=== PATIENT | male | born 1940 | race Caucasian/White ===

== ENCOUNTER 2016-10-27 17:16 | Emergency (ER) | payer MEDICARE, MEDICAID ==
[2016-10-27 17:18] VITALS: BMI 20.3
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
[2016-10-27 22:39] VITALS: BP 142/76; PULSE 70; RESP 16; TEMP 98; O2SAT 99
== END 2016-10-27 22:38 | disposition home or self-care (01) ==
LOC: C.ER 17:16
DX: F91.9 Conduct disorder, unspecified (principal)

== ENCOUNTER 2017-01-30 01:40 | Inpatient (IN) | payer MEDICARE, MEDICAID ==
[2017-01-30 01:41] VITALS: BMI 20.3
--- NOTE | 2017-01-30 01:44 | C.PDOC ---
History Of Present Illness Patient presents to ED sent from [facility] with complaints of fever, congestion and white/yellowish productive cough. Patient denies n/v/d, chest pain, or any other complaints at this time. Time Seen by Provider: 01/30/17 01:43 History Per: Patient History/Exam Limitations: no limitations Onset/Duration Of Symptoms: Hrs Current Symptoms Are (Timing): Still Present Severity: Moderate Pain Scale Rating Of: 4 Reports Recently: Seen In ED, Treated By A Physician, Hospitalized Recent travel outside of the [place]: No Additional History Per: EMS Past Medical History Reviewed: Historical Data, Nursing Documentation, Vital Signs Vital Signs: Last Vital Signs Temp 100.6 F H 01/30/17 01:46 Pulse 87 01/30/17 01:46 Resp 24 01/30/17 01:46 BP 150/71 01/30/17 01:46 Pulse Ox 100 01/30/17 04:08 - Medical History PMH: Benign Prostatic Hyperplasia, Dementia (W BEHAVIOR D/O), Depression, HTN, Hyperlipidemia, Pancreatitis, Seizures - [facility] Procedures CONTRAST ARTERIOGRAM-LEG (12/08/12) Family History: States: No Known Family Hx - Social History Hx Alcohol Use: No Hx Substance Use: No - Immunization History Hx Tetanus Toxoid Vaccination: No Hx Influenza Vaccination: No Hx Pneumococcal Vaccination: No Review Of Systems Constitutional: Positive for: Fever. Negative for: Chills Eyes: Negative for: Redness ENT: Positive for: Nose Congestion Cardiovascular: Negative for: Chest Pain Respiratory: Positive for: Cough, Shortness of Breath Gastrointestinal: Negative for: Nausea, Vomiting, Diarrhea Genitourinary: Negative for: Dysuria Musculoskeletal: Negative for: Back Pain Skin: Negative for: Rash, Lesions Neurological: Negative for: Weakness Psych: Positive for: Anxiety Physical Exam - Physical Exam Appears: Non-toxic, Other (moderate distress) Skin: Warm, Dry Head: Normacephalic Eye(s): bilateral: Normal Inspection Nose: No Flaring Oral Mucosa: Dry Throat: No Erythema Neck: Supple Chest: Symmetrical Cardiovascular: Rhythm Regular Respiratory: No Rales, Rhonchi (Scattered), No Wheezing Gastrointestinal/Abdominal: Soft, No Tenderness, No Distention, No Guarding, No Rebound Back: No CVA Tenderness Extremity: No Tenderness, Other (r bka) Extremity: Right: Other (bka) Neurological/Psych: Oriented x3, Normal Speech, Normal Cognition Gait: Unable To Assess ED Course And Treatment - Laboratory Results Result Diagrams: 01/30/17 02:06 01/30/17 02:06 ECG: Interpreted By Me, Viewed By Me ECG Rhythm: Sinus Rhythm (82), R BBB, ST/T Changes (lat ischemic chenges), Nonspecific Changes (lahb) O2 Sat by Pulse Oximetry: 100 (RA) Pulse Ox Interpretation: Normal Disposition Discussed With Dr.: Gabi Huddleston Comment: accepted the pt on his service and took over the care at 4AM Doctor Will See Patient In The: Hospital Counseled Patient/Family Regarding: Studies Performed, Diagnosis - Disposition Referrals: Gabi Huddleston MD [Primary Care Provider] - Disposition: HOSPITALIZED Disposition Time: 01:43 Condition: FAIR - Clinical Impression Clinical Impression: Upper respiratory infection, Pneumonia, UTI (urinary tract infection) - Scribe Statement The provider has reviewed the documentation as recorded by the Scribe Jennie Beauchamp All medical record entries made by the Scribe were at my direction and personally dictated by me. I have reviewed the chart and agree that the record accurately reflects my personal performance of the history, physical exam, medical decision making, and the department course for this patient. I have also personally directed, reviewed, and agree with the discharge instructions and disposition. Decision To Admit - Pt Status Changed To: Hospital Disposition Of: Inpatient - Admit Certification Admit to Inpatient:: After my assessment, the patient will require hospitalization for at least two midnights. This is because of the severity of symptoms shown, intensity of services needed, and/or the medical risk in this patient being treated as an outpatient. - InPatient: Physician Admission Certification: I certify that this patient requires 2 or more midnights of care for the following reason:: After my assessment, the patient will require hospitalization for at least two midnights. This is because of the severity of symptoms shown, intensity of services needed, and/or the medical risk in this patient being treated as an outpatient. - . Bed Request Type: Regular Admitting Physician: Gabi Huddleston Patient Diagnosis: Upper respiratory infection, Pneumonia
[2017-01-30] MEDS ORDERED: Sodium Chloride 0.9% 1,000 ML IV ONE (01:46)
[2017-01-30] MEDS ORDERED: Sodium Chloride 0.9% 1,000 ML ONE (02:01)
[2017-01-30] MEDS: Albuterol-Ipratrop 3 mg / 0.5 (3 ml) UD IH SCH ×3 (02:02→02:33)
[2017-01-30] MEDS ORDERED: Albuterol-Ipratrop 3 mg / 0.5 (3 ml) UD ONE (02:06)
[2017-01-30 02:09] LABS: BASO % 0.3 % (0.0-2.0); HEMATOCRIT 38.9 % (35.0-51.0); LYMPH # 2.2 K/uL (1.0-4.3); LYMPH % 15.9 % (20.0-40.0); MEAN CELL VOLUME 80.5 fL (80.0-94.0); MEAN CORPUSCULAR HEMOGLOBIN 25.8 pg (27.0-31.0); MEAN PLATELET VOLUME 8.9 fL (7.2-11.7); MONO # 2.3 K/uL (0.0-0.8); MONO % 16.4 % (0.0-10.0); RED CELL DISTRIBUTION WIDTH 14.6 % (11.5-14.5); WHITE BLOOD COUNT 13.7 K/uL (4.8-10.8)
[2017-01-30 02:20] LABS: CHLORIDE 101 mmol/L (98-107)
[2017-01-30 02:21] LABS: POTASSIUM 4.4 mmol/L (3.6-5.2); SODIUM 146 mmol/L (132-148)
[2017-01-30 02:22] LABS: INR 1.4
[2017-01-30 02:23] LABS: GFR AFRICAN-AMERICAN > 60
[2017-01-30 02:24] LABS: ALKALINE PHOSPHATASE 451 U/L (38-126); ALT/SGPT 13 U/L (21-72); AST/SGOT 38 U/L (17-59); BILIRUBIN,TOTAL 0.9 mg/dL (0.2-1.3); BLOOD UREA NITROGEN 23 mg/dL (9-20); CALCIUM 9.6 mg/dl (8.6-10.4); CARBON DIOXIDE 27 mmol/L (22-30); GLUCOSE,RANDOM 122 mg/dL (75-110)
[2017-01-30 02:28] LABS: ABG ALLEN TEST POS; DRAW SITE L RAD
[2017-01-30 02:47] LABS: ALB/GLOB RATIO 0.8 (1.0-2.1)
[2017-01-30 04:01] LABS: RBC URINE 174 /hpf (0-3); URINE BILIRUBIN NEGATIVE (NEGATIVE); URINE BLOOD 2+ (NEGATIVE); URINE COLOR Yellow (YELLOW); URINE GLUCOSE (UA) NORMAL (Normal); URINE KETONE 1+ mg/dL (NEGATIVE); URINE LEUKOCYTE ESTERASE 1+ Leu/uL (Negative); URINE PROTEIN 2+ mg/dL (NEGATIVE); WBC URINE 13 /hpf (0-5)
[2017-01-30] MEDS ORDERED: Piperacillin/Tazobact 3.375 gm 100 ML IVPB STA (04:54)
[2017-01-30] MEDS ORDERED: Piperacillin/Tazobact 3.375 gm 100 ML IVPB ONE (05:05)
--- NOTE | 2017-01-30 08:50 | RAD ---
PROCEDURE: CHEST RADIOGRAPH, 1 VIEW HISTORY: SOB COMPARISON: None available. FINDINGS: LUNGS: No acute infiltrate identified. PLEURA: No pneumothorax or pleural fluid seen. CARDIOVASCULAR: Normal. OSSEOUS STRUCTURES: No significant abnormalities. VISUALIZED UPPER ABDOMEN: Normal. OTHER FINDINGS: None. IMPRESSION: No acute cardiopulmonary disease appreciated.
[2017-01-30] MEDS ORDERED: Azithromycin 500mg/250ML NS 500 MG/250 ML BAG IVPB SCH (09:00)
[2017-01-30] MEDS ORDERED: Home Med 1 UNIT (Brimonidine 0.15% [Alphagan P 0.15% Opht] 1 DROP) OP SCH (10:00)
[2017-01-30] MEDS: Metoprolol Succinate 25 mg XL Tab PO SCH (10:50)
[2017-01-30] MEDS: Azithromycin 500 MG in Sodium Chloride 0.9% 250 ML IVPB SCH (10:50)
[2017-01-30] MEDS: Enoxaparin 40 mg Syringe SC SCH (10:50)
[2017-01-30] MEDS: cefTRIAXone IV 1 gm in Dextros 50 ML IVPB SCH (13:02)
[2017-01-30] MEDS: Albuterol-Ipratrop 3 mg / 0.5 (3 ml) UD INH SCH ×2 (13:05→20:12)
--- NOTE | 2017-01-30 16:37 | CP.PCM.HP ---
Past Patient History - Infectious Disease Hx of Infectious Diseases: None - Past Medical History & Family History Past Medical History?: Yes - Past Social History Smoking Status: Former Smoker - CARDIAC Hx Hypertension: Yes - PULMONARY Hx Asthma: No Hx Bronchitis: No - NEUROLOGICAL Hx Dementia: Yes (W BEHAVIOR D/O) Hx Seizures: Yes - HEENT Hx HEENT Problems: No - RENAL Hx Chronic Kidney Disease: No Hx Kidney Stones: No - ENDOCRINE/METABOLIC Hx Endocrine Disorders: No - HEMATOLOGICAL/ONCOLOGICAL Hx Human Immunodeficiency Virus (HIV): No - INTEGUMENTARY Hx Dermatological Problems: Yes Hx Cellulitis: Yes - MUSCULOSKELETAL/RHEUMATOLOGICAL Hx Musculoskeletal Disorders: Yes Hx Falls: Yes - GASTROINTESTINAL Hx Pancreatitis: Yes - GENITOURINARY/GYNECOLOGICAL Hx Prostate Problems: Yes (BPH) Hx Sexually Transmitted Disorders: No - PSYCHIATRIC Hx Depression: Yes Hx Substance Use: No - SURGICAL HISTORY Hx Surgeries: Yes Hx Amputation: Yes (R BKA) - ANESTHESIA Hx Anesthesia: Yes Hx Anesthesia Reactions: No Hx Malignant Hyperthermia: No Meds Allergies/Adverse Reactions: Allergies Allergy/AdvReac Type Severity Reaction Status Date / Time No Known Allergies Allergy Verified 01/30/17 01:43 Physical Exam - Constitutional Appears: Well - Head Exam Head Exam: ATRAUMATIC, NORMAL INSPECTION, NORMOCEPHALIC - Eye Exam Eye Exam: EOMI, Normal appearance, PERRL Pupil Exam: NORMAL ACCOMODATION, PERRL - ENT Exam ENT Exam: Mucous Membranes Moist, Normal Exam - Neck Exam Neck exam: Positive for: Normal Inspection - Respiratory Exam Respiratory Exam: Decreased Breath Sounds, Clear to Auscultation Bilateral, NORMAL BREATHING PATTERN - Cardiovascular Exam Cardiovascular Exam: REGULAR RHYTHM, +S1, +S2 - GI/Abdominal Exam GI & Abdominal Exam: Diminished Bowel Sounds, Soft - Rectal Exam Rectal Exam: Deferred Results - Vital Signs Recent Vital Signs: Last Vital Signs Temp 98.0 F 01/30/17 08:21 Pulse 90 01/30/17 14:20 Resp 18 01/30/17 08:21 BP 138/75 01/30/17 08:21 Pulse Ox 96 01/30/17 08:21 - Labs Result Diagrams: 01/30/17 02:06 01/30/17 02:06 Labs: Laboratory Results - last 24 hr 01/30/17 03:54 Urine Color Yellow Urine Clarity Hazy Urine pH 6.0 Ur Specific [place] 1.020 Urine Protein 2+ H Urine Glucose (UA) Normal Urine Ketones 1+ H Urine Blood 2+ H Urine Nitrate Negative Urine Bilirubin Negative Urine Urobilinogen 4.0 Ur Leukocyte Esterase 1+ H Urine WBC (Auto) 13 H Urine RBC (Auto) 174 H Ur Squamous Epith Cells 3
--- NOTE | 2017-01-30 19:08 | CARD ---
APPROVED REPORT EKG Measurement Heart [id number] <Conclusion> Normal sinus rhythm Possible Left atrial enlargement Right bundle branch block Left anterior fascicular block Bifascicular block T wave abnormality, consider lateral ischemia Abnormal ECG
[2017-01-30] MEDS ORDERED: Latanoprost 2.5 ml Opht Soln OD SCH (22:00)
[2017-01-31] MEDS: Albuterol-Ipratrop 3 mg / 0.5 (3 ml) UD INH SCH ×4 (01:13→19:45)
[2017-01-31] MEDS: Enoxaparin 40 mg Syringe SC SCH (09:24)
[2017-01-31] MEDS: Azithromycin 500 MG in Sodium Chloride 0.9% 250 ML IVPB SCH ×2 (09:24→14:25)
[2017-01-31] MEDS: Metoprolol Succinate 25 mg XL Tab PO SCH (09:25)
[2017-01-31] MEDS ORDERED: Home Med 1 UNIT (Brimonidine 0.15% [Alphagan P 0.15% Opht] 1 DROP) OU SCH (09:38)
[2017-01-31] MEDS: cefTRIAXone IV 1 gm in Dextros 50 ML IVPB SCH (12:51)
[2017-01-31] MEDS: Brimonidine 0.2% Opth Sol (5ml) OU SCH ×2 (12:52→19:29)
--- NOTE | 2017-01-31 13:51 | CP.PCM.PN ---
Subjective - Date & Time of Evaluation Date of Evaluation: 01/31/17 Time of Evaluation: 09:20 - Subjective Subjective: clinically same Objective - Vital Signs/Intake and Output Vital Signs (last 24 hours): Temp Pulse Resp BP Pulse Ox 98.1 F 101 H 20 135/64 96 01/31/17 08:00 01/31/17 08:00 01/31/17 08:00 01/31/17 08:00 01/31/17 08:00 Intake and Output: 01/31/17 01/31/17 06:59 18:59 Intake Total 100 Balance 100 - Medications Medications: Current Medications Acetaminophen (Tylenol 325mg Tab) 325 mg PO Q4H PRN PRN Reason: Pain, Mild (1-3) Albuterol/Ipratropium (Duoneb 3 Mg/0.5 Mg (3 Ml) Ud) 3 ml INH RQ6 [facility] Last Admin: 01/31/17 13:25 Dose: 3 ml Aspirin (Aspirin Chewable) 81 mg PO DAILY [facility] Last Admin: 01/31/17 09:25 Dose: 81 mg Brimonidine Tartrate (Alphagan 0.2% Opht) 0 ml OU BID [facility] Last Admin: 01/31/17 12:52 Dose: 1 drop Divalproex Sodium (Depakote Er) 250 mg PO DAILY [facility] Last Admin: 01/31/17 09:25 Dose: 250 mg Enoxaparin Sodium (Lovenox) 40 mg SC DAILY [facility] Last Admin: 01/31/17 09:24 Dose: 40 mg Gabapentin (Neurontin) 300 mg PO BID [facility] Last Admin: 01/31/17 09:25 Dose: 300 mg Ceftriaxone Sodium (Rocephin Iv 1 Gm Duplex) 50 mls @ 100 mls/hr IVPB DAILY [facility] Last Admin: 01/31/17 12:51 Dose: 100 mls/hr Azithromycin 500 mg/ Sodium (Chloride) 250 mls @ 167 mls/hr IVPB Q24H [facility] Last Admin: 01/30/17 10:50 Dose: 167 mls/hr Latanoprost (Xalatan Opht) 0 ml OU HS [facility] Levetiracetam (Keppra) 500 mg PO BID [facility] Last Admin: 01/31/17 09:25 Dose: 500 mg Lorazepam (Ativan) 0.5 mg PO Q8H PRN PRN Reason: Anxiety Metoprolol Succinate (Toprol Xl) 25 mg PO DAILY [facility] Last Admin: 01/31/17 09:25 Dose: 25 mg Mirtazapine (Remeron) 7.5 mg PO HS [facility] Last Admin: 01/30/17 21:39 Dose: 7.5 mg Rosuvastatin Calcium (Crestor) 5 mg PO [facility] Tamsulosin HCl (Flomax) 0.4 mg PO DAILY [facility] Last Admin: 01/31/17 09:25 Dose: 0.4 mg - Labs Labs: PT 15.5 SECONDS (9.7-12.2) H 01/30/17 02:06 INR 1.4 01/30/17 02:06 APTT 38 SECONDS (21-34) H 01/30/17 02:06 - Constitutional Appears: Well - Head Exam Head Exam: ATRAUMATIC, NORMAL INSPECTION, NORMOCEPHALIC - Eye Exam Eye Exam: EOMI, Normal appearance, PERRL Pupil Exam: NORMAL ACCOMODATION, PERRL - ENT Exam ENT Exam: Mucous Membranes Moist, Normal Exam - Neck Exam Neck Exam: Full ROM, Normal Inspection. absent: Lymphadenopathy - Respiratory Exam Respiratory Exam: Decreased Breath Sounds - Cardiovascular Exam Cardiovascular Exam: REGULAR RHYTHM, +S1, +S2 - GI/Abdominal Exam GI & Abdominal Exam: Soft, Diminished Bowel Sounds - Rectal Exam Rectal Exam: Deferred
[2017-01-31] MEDS: Latanoprost 2.5 ml Opht Soln OU SCH (21:30)
[2017-02-01] MEDS: Albuterol-Ipratrop 3 mg / 0.5 (3 ml) UD INH SCH ×4 (01:26→19:18)
[2017-02-01] MEDS: Brimonidine 0.2% Opth Sol (5ml) OU SCH ×2 (09:54→18:00)
[2017-02-01] MEDS: Metoprolol Succinate 25 mg XL Tab PO SCH (09:54)
[2017-02-01] MEDS: Enoxaparin 40 mg Syringe SC SCH (09:54)
[2017-02-01] MEDS: cefTRIAXone IV 1 gm in Dextros 50 ML IVPB SCH (10:01)
[2017-02-01] MEDS: Azithromycin 500 MG in Sodium Chloride 0.9% 250 ML IVPB SCH (11:17)
[2017-02-01] MEDS: Latanoprost 2.5 ml Opht Soln OU SCH (21:39)
--- NOTE | 2017-02-01 21:58 | CP.PCM.PN ---
Subjective - Date & Time of Evaluation Date of Evaluation: 02/01/17 Time of Evaluation: 09:30 - Subjective Subjective: clinically same Objective - Vital Signs/Intake and Output Vital Signs (last 24 hours): Temp Pulse Resp BP Pulse Ox 97.7 F 74 20 154/72 H 100 02/01/17 16:56 02/01/17 16:56 02/01/17 16:56 02/01/17 16:56 02/01/17 16:56 Intake and Output: 02/01/17 02/02/17 18:59 06:59 Intake Total 300 Balance 300 - Medications Medications: Current Medications Acetaminophen (Tylenol 325mg Tab) 325 mg PO Q4H PRN PRN Reason: Pain, Mild (1-3) Last Admin: 02/01/17 03:54 Dose: 325 mg Albuterol/Ipratropium (Duoneb 3 Mg/0.5 Mg (3 Ml) Ud) 3 ml INH RQ6 [facility] Last Admin: 02/01/17 19:18 Dose: 3 ml Aspirin (Aspirin Chewable) 81 mg PO DAILY [facility] Last Admin: 02/01/17 09:54 Dose: 81 mg Brimonidine Tartrate (Alphagan 0.2% Opht) 0 ml OU BID [facility] Last Admin: 02/01/17 18:00 Dose: 1 drop Divalproex Sodium (Depakote Er) 250 mg PO DAILY [facility] Last Admin: 02/01/17 09:54 Dose: 250 mg Enoxaparin Sodium (Lovenox) 40 mg SC DAILY [facility] Last Admin: 02/01/17 09:54 Dose: 40 mg Gabapentin (Neurontin) 300 mg PO BID [facility] Last Admin: 02/01/17 17:39 Dose: 300 mg Ceftriaxone Sodium (Rocephin Iv 1 Gm Duplex) 50 mls @ 100 mls/hr IVPB DAILY [facility] Last Admin: 02/01/17 10:01 Dose: 100 mls/hr Azithromycin 500 mg/ Sodium (Chloride) 250 mls @ 167 mls/hr IVPB Q24H [facility] Last Admin: 02/01/17 11:17 Dose: 167 mls/hr Latanoprost (Xalatan Opht) 0 ml OU HS [facility] Last Admin: 02/01/17 21:39 Dose: 2.5 ml Levetiracetam (Keppra) 500 mg PO BID [facility] Last Admin: 02/01/17 17:39 Dose: 500 mg Lorazepam (Ativan) 0.5 mg PO Q8H PRN PRN Reason: Anxiety Metoprolol Succinate (Toprol Xl) 25 mg PO DAILY [facility] Last Admin: 02/01/17 09:54 Dose: 25 mg Mirtazapine (Remeron) 7.5 mg PO [facility] Last Admin: 02/01/17 21:39 Dose: 7.5 mg Rosuvastatin Calcium (Crestor) 5 mg PO [facility] Last Admin: 02/01/17 21:39 Dose: 5 mg Tamsulosin HCl (Flomax) 0.4 mg PO DAILY [facility] Last Admin: 02/01/17 09:54 Dose: 0.4 mg - Labs Labs: PT 15.5 SECONDS (9.7-12.2) H 01/30/17 02:06 INR 1.4 01/30/17 02:06 APTT 38 SECONDS (21-34) H 01/30/17 02:06 - Constitutional Appears: Well - Head Exam Head Exam: ATRAUMATIC, NORMAL INSPECTION, NORMOCEPHALIC - Eye Exam Eye Exam: EOMI, Normal appearance, PERRL - ENT Exam ENT Exam: Mucous Membranes Moist, Normal Exam - Neck Exam Neck Exam: Full ROM, Normal Inspection. absent: Lymphadenopathy - Respiratory Exam Respiratory Exam: Decreased Breath Sounds - Cardiovascular Exam Cardiovascular Exam: REGULAR RHYTHM, +S1, +S2. absent: Murmur - GI/Abdominal Exam GI & Abdominal Exam: Soft, Diminished Bowel Sounds - Rectal Exam Rectal Exam: Deferred Assessment and Plan (1) Pneumonia Status: Acute (2) UTI (urinary tract infection) Status: Acute (3) Upper respiratory infection Status: Acute (4) Aggressive behavior Status: Acute (5) Alzheimer's dementia Status: Acute (6) Fall Status: Acute (7) Head injury Status: Acute (8) Polyuria Status: Acute (9) Seizure Status: Acute
[2017-02-02] MEDS: Albuterol-Ipratrop 3 mg / 0.5 (3 ml) UD INH SCH ×4 (01:26→19:54)
[2017-02-02] MEDS: Azithromycin 500 MG in Sodium Chloride 0.9% 250 ML IVPB SCH (09:24)
[2017-02-02] MEDS: Metoprolol Succinate 25 mg XL Tab PO SCH (09:25)
[2017-02-02] MEDS: Enoxaparin 40 mg Syringe SC SCH (09:26)
[2017-02-02] MEDS: Brimonidine 0.2% Opth Sol (5ml) OU SCH ×2 (09:26→18:18)
[2017-02-02] MEDS: cefTRIAXone IV 1 gm in Dextros 50 ML IVPB SCH (11:04)
--- NOTE | 2017-02-02 12:13 | CP.PCM.CON ---
History of Present Illness - History of Present Illness History of Present Illness: cc: elevated psa Past Patient History - Infectious Disease Hx of Infectious Diseases: None - Past Medical History & Family History Past Medical History?: Yes - Past Social History Smoking Status: Former Smoker - CARDIAC Hx Hypertension: Yes - PULMONARY Hx Asthma: No Hx Bronchitis: No - NEUROLOGICAL Hx Dementia: Yes (W BEHAVIOR D/O) Hx Seizures: Yes - HEENT Hx HEENT Problems: No - RENAL Hx Chronic Kidney Disease: No Hx Kidney Stones: No - ENDOCRINE/METABOLIC Hx Endocrine Disorders: No - HEMATOLOGICAL/ONCOLOGICAL Hx Human Immunodeficiency Virus (HIV): No - INTEGUMENTARY Hx Dermatological Problems: Yes Hx Cellulitis: Yes - MUSCULOSKELETAL/RHEUMATOLOGICAL Hx Musculoskeletal Disorders: Yes Hx Falls: Yes - GASTROINTESTINAL Hx Pancreatitis: Yes - GENITOURINARY/GYNECOLOGICAL Hx Prostate Problems: Yes (BPH) Hx Sexually Transmitted Disorders: No - PSYCHIATRIC Hx Substance Use: No - SURGICAL HISTORY Hx Surgeries: Yes Hx Amputation: Yes (R BKA) - ANESTHESIA Hx Anesthesia: Yes Hx Anesthesia Reactions: No Hx Malignant Hyperthermia: No Meds Allergies/Adverse Reactions: Allergies Allergy/AdvReac Type Severity Reaction Status Date / Time No Known Allergies Allergy Verified 01/30/17 01:43 - Medications Medications: Current Medications Acetaminophen (Tylenol 325mg Tab) 325 mg PO Q4H PRN PRN Reason: Pain, Mild (1-3) Last Admin: 02/02/17 00:48 Dose: 325 mg Albuterol/Ipratropium (Duoneb 3 Mg/0.5 Mg (3 Ml) Ud) 3 ml INH RQ6 [facility] Last Admin: 02/02/17 07:16 Dose: 3 ml Aspirin (Aspirin Chewable) 81 mg PO DAILY [facility] Last Admin: 02/02/17 09:25 Dose: 81 mg Brimonidine Tartrate (Alphagan 0.2% Opht) 0 ml OU BID [facility] Last Admin: 02/02/17 09:26 Dose: 1 drop Divalproex Sodium (Depakote Er) 250 mg PO DAILY [facility] Last Admin: 02/02/17 09:25 Dose: 250 mg Enoxaparin Sodium (Lovenox) 40 mg SC DAILY [facility] Last Admin: 02/02/17 09:26 Dose: 40 mg Gabapentin (Neurontin) 300 mg PO BID [facility] Last Admin: 02/02/17 09:25 Dose: 300 mg Ceftriaxone Sodium (Rocephin Iv 1 Gm Duplex) 50 mls @ 100 mls/hr IVPB DAILY [facility] Last Admin: 02/02/17 11:04 Dose: 100 mls/hr Azithromycin 500 mg/ Sodium (Chloride) 250 mls @ 167 mls/hr IVPB Q24H [facility] Last Admin: 02/02/17 09:24 Dose: 167 mls/hr Latanoprost (Xalatan Opht) 0 ml OU HS [facility] Last Admin: 02/01/17 21:39 Dose: 2.5 ml Levetiracetam (Keppra) 500 mg PO BID [facility] Last Admin: 02/02/17 09:25 Dose: 500 mg Lorazepam (Ativan) 0.5 mg PO Q8H PRN PRN Reason: Anxiety Metoprolol Succinate (Toprol Xl) 25 mg PO DAILY [facility] Last Admin: 02/02/17 09:25 Dose: 25 mg Mirtazapine (Remeron) 7.5 mg PO HS [facility] Last Admin: 02/01/17 21:39 Dose: 7.5 mg Rosuvastatin Calcium (Crestor) 5 mg PO [facility] Last Admin: 02/01/17 21:39 Dose: 5 mg Tamsulosin HCl (Flomax) 0.4 mg PO DAILY [facility] Last Admin: 02/02/17 09:25 Dose: 0.4 mg Results - Vital Signs Recent Vital Signs: Last Vital Signs Temp 97.9 F 02/02/17 08:27 Pulse 87 02/02/17 08:27 Resp 20 02/02/17 08:27 BP 139/70 02/02/17 08:27 Pulse Ox 99 02/02/17 08:27 - Labs Result Diagrams: 01/30/17 02:06 01/30/17 02:06 Labs: Laboratory Results - last 24 hr 02/02/17 07:07 Prostate Specific Ag 79.3 H Assessment & Plan - Assessment and Plan (Free Text) Assessment: imp; elevated psa. ddx: infection, bph, carcinoma abnormal u/s respiratory infection Thank you. YS - Date & Time Date: 02/02/17 Time: 12:13
--- NOTE | 2017-02-02 14:45 | US ---
PROCEDURE: Ultrasound of the Kidneys HISTORY: prostate ca, microhematuria COMPARISON: None available. TECHNIQUE: Sonogram of the kidneys. FINDINGS: RIGHT KIDNEY: Measures: 11.1 x 3.7 x 4.6 cm. 1.2 x 1.0 x 1.4 cm upper pole echogenic lesion, indeterminate. No obstructing calculus or hydronephrosis identified. LEFT KIDNEY: Measures: 9.5 x 5.4 x 5.1 cm. 5.0 x 4.4 x 4.1 cm complex appearing cyst within the upper/mid pole. No obstructing calculus or hydronephrosis identified. OTHER FINDINGS: None. IMPRESSION: 1.2 x 1.0 x 1.4 cm right upper pole echogenic lesion, indeterminate.5.0 x 4.4 x 4.1 cm complex appearing cyst within the upper/mid pole. If indicated, dedicated CT utilizing renal mass protocol suggested for further evaluation.
--- NOTE | 2017-02-02 17:48 | CP.PCM.PN ---
Subjective - Date & Time of Evaluation Date of Evaluation: 02/02/17 Time of Evaluation: 09:00 - Subjective Subjective: clinically same Objective - Vital Signs/Intake and Output Vital Signs (last 24 hours): Temp Pulse Resp BP Pulse Ox 97.8 F 64 20 135/66 100 02/02/17 15:56 02/02/17 15:56 02/02/17 15:56 02/02/17 15:56 02/02/17 15:56 Intake and Output: 02/02/17 02/02/17 06:59 18:59 Intake Total 440 Balance 440 - Medications Medications: Current Medications Acetaminophen (Tylenol 325mg Tab) 325 mg PO Q4H PRN PRN Reason: Pain, Mild (1-3) Last Admin: 02/02/17 00:48 Dose: 325 mg Albuterol/Ipratropium (Duoneb 3 Mg/0.5 Mg (3 Ml) Ud) 3 ml INH RQ6 [facility] Last Admin: 02/02/17 13:12 Dose: 3 ml Aspirin (Aspirin Chewable) 81 mg PO DAILY [facility] Last Admin: 02/02/17 09:25 Dose: 81 mg Brimonidine Tartrate (Alphagan 0.2% Opht) 0 ml OU BID [facility] Last Admin: 02/02/17 09:26 Dose: 1 drop Divalproex Sodium (Depakote Er) 250 mg PO DAILY [facility] Last Admin: 02/02/17 09:25 Dose: 250 mg Enoxaparin Sodium (Lovenox) 40 mg SC DAILY [facility] Last Admin: 02/02/17 09:26 Dose: 40 mg Gabapentin (Neurontin) 300 mg PO BID [facility] Last Admin: 02/02/17 09:25 Dose: 300 mg Ceftriaxone Sodium (Rocephin Iv 1 Gm Duplex) 50 mls @ 100 mls/hr IVPB DAILY [facility] Last Admin: 02/02/17 11:04 Dose: 100 mls/hr Azithromycin 500 mg/ Sodium (Chloride) 250 mls @ 167 mls/hr IVPB Q24H [facility] Last Admin: 02/02/17 09:24 Dose: 167 mls/hr Latanoprost (Xalatan Opht) 0 ml OU HS [facility] Last Admin: 02/01/17 21:39 Dose: 2.5 ml Levetiracetam (Keppra) 500 mg PO BID [facility] Last Admin: 02/02/17 09:25 Dose: 500 mg Lorazepam (Ativan) 0.5 mg PO Q8H PRN PRN Reason: Anxiety Metoprolol Succinate (Toprol Xl) 25 mg PO DAILY [facility] Last Admin: 02/02/17 09:25 Dose: 25 mg Mirtazapine (Remeron) 7.5 mg PO [facility] Last Admin: 02/01/17 21:39 Dose: 7.5 mg Rosuvastatin Calcium (Crestor) 5 mg PO [facility] Last Admin: 02/01/17 21:39 Dose: 5 mg Tamsulosin HCl (Flomax) 0.4 mg PO DAILY [facility] Last Admin: 02/02/17 09:25 Dose: 0.4 mg - Labs Labs: PT 15.5 SECONDS (9.7-12.2) H 01/30/17 02:06 INR 1.4 01/30/17 02:06 APTT 38 SECONDS (21-34) H 01/30/17 02:06 - Constitutional Appears: Well - Head Exam Head Exam: ATRAUMATIC, NORMAL INSPECTION, NORMOCEPHALIC - Eye Exam Eye Exam: EOMI, Normal appearance, PERRL Pupil Exam: NORMAL ACCOMODATION, PERRL - ENT Exam ENT Exam: Mucous Membranes Moist, Normal Exam - Neck Exam Neck Exam: Full ROM, Normal Inspection. absent: Lymphadenopathy - Respiratory Exam Respiratory Exam: Decreased Breath Sounds - Cardiovascular Exam Cardiovascular Exam: REGULAR RHYTHM, +S1, +S2 - GI/Abdominal Exam GI & Abdominal Exam: Soft, Diminished Bowel Sounds - Rectal Exam Rectal Exam: Deferred Assessment and Plan (1) Pneumonia Status: Acute (2) UTI (urinary tract infection) Status: Acute (3) Upper respiratory infection Status: Acute (4) Aggressive behavior Status: Acute (5) Alzheimer's dementia Status: Acute (6) Fall Status: Acute (7) Head injury Status: Acute (8) Polyuria Status: Acute (9) Seizure Status: Acute
[2017-02-02] MEDS: Latanoprost 2.5 ml Opht Soln OU SCH (22:28)
[2017-02-03] MEDS: Albuterol-Ipratrop 3 mg / 0.5 (3 ml) UD INH SCH ×4 (01:43→19:36)
[2017-02-03] MEDS: Metoprolol Succinate 25 mg XL Tab PO SCH (10:35)
[2017-02-03] MEDS: Brimonidine 0.2% Opth Sol (5ml) OU SCH ×2 (10:35→22:44)
[2017-02-03] MEDS: Enoxaparin 40 mg Syringe SC SCH (10:36)
[2017-02-03] MEDS: cefTRIAXone IV 1 gm in Dextros 50 ML IVPB SCH (10:37)
[2017-02-03] MEDS: Azithromycin 500 MG in Sodium Chloride 0.9% 250 ML IVPB SCH (10:37)
--- NOTE | 2017-02-03 14:38 | NM ---
PROCEDURE: Whole Body Bone Scan HISTORY: Prostate cancer COMPARISON: None available. TECHNIQUE: Following administration of 23.9 miCu of Tc MDP multiplanar whole body images were obtained. FINDINGS: Evidence for bony metastatic disease: Thoracolumbar spine, right hemipelvis. Degenerative uptake: None. Physiologic uptake: Asymmetrical (left greater than right) physiologic activity in the kidneys. Other findings: Status post right BKA. Increased uptake within the right femur which appears to be technical/ positional. IMPRESSION: Osseous metastatic disease thoracolumbar spine and pelvis. No evidence of bony metastatic disease.
--- NOTE | 2017-02-03 18:04 | CP.PCM.PN ---
Subjective - Date & Time of Evaluation Date of Evaluation: 02/03/17 Time of Evaluation: 09:00 - Subjective Subjective: clinically same Objective - Vital Signs/Intake and Output Vital Signs (last 24 hours): Temp Pulse Resp BP Pulse Ox 97.7 F 59 L 20 130/70 100 02/03/17 15:00 02/03/17 15:00 02/03/17 15:00 02/03/17 15:00 02/03/17 15:00 Intake and Output: 02/03/17 02/03/17 06:59 18:59 Intake Total 540 Balance 540 - Medications Medications: Current Medications Acetaminophen (Tylenol 325mg Tab) 325 mg PO Q4H PRN PRN Reason: Pain, Mild (1-3) Last Admin: 02/02/17 00:48 Dose: 325 mg Albuterol/Ipratropium (Duoneb 3 Mg/0.5 Mg (3 Ml) Ud) 3 ml INH RQ6 [facility] Last Admin: 02/03/17 13:49 Dose: Not Given Aspirin (Aspirin Chewable) 81 mg PO DAILY [facility] Last Admin: 02/03/17 10:34 Dose: 81 mg Brimonidine Tartrate (Alphagan 0.2% Opht) 0 ml OU BID [facility] Last Admin: 02/03/17 10:35 Dose: 2 drop Divalproex Sodium (Depakote Er) 250 mg PO DAILY [facility] Last Admin: 02/03/17 10:35 Dose: 250 mg Enoxaparin Sodium (Lovenox) 40 mg SC DAILY [facility] Last Admin: 02/03/17 10:36 Dose: 40 mg Gabapentin (Neurontin) 300 mg PO BID [facility] Last Admin: 02/03/17 17:28 Dose: 300 mg Ceftriaxone Sodium (Rocephin Iv 1 Gm Duplex) 50 mls @ 100 mls/hr IVPB DAILY [facility] Last Admin: 02/03/17 10:37 Dose: 100 mls/hr Azithromycin 500 mg/ Sodium (Chloride) 250 mls @ 167 mls/hr IVPB Q24H [facility] Last Admin: 02/03/17 10:37 Dose: 167 mls/hr Latanoprost (Xalatan Opht) 0 ml OU HS [facility] Last Admin: 02/02/17 22:28 Dose: 2.5 ml Levetiracetam (Keppra) 500 mg PO BID [facility] Last Admin: 02/03/17 17:28 Dose: 500 mg Lorazepam (Ativan) 0.5 mg PO Q8H PRN PRN Reason: Anxiety Metoprolol Succinate (Toprol Xl) 25 mg PO DAILY [facility] Last Admin: 02/03/17 10:35 Dose: 25 mg Mirtazapine (Remeron) 7.5 mg PO [facility] Last Admin: 02/02/17 22:27 Dose: 7.5 mg Rosuvastatin Calcium (Crestor) 5 mg PO [facility] Last Admin: 02/02/17 22:29 Dose: 5 mg Tamsulosin HCl (Flomax) 0.4 mg PO DAILY [facility] Last Admin: 02/03/17 10:35 Dose: 0.4 mg - Labs Labs: PT 15.5 SECONDS (9.7-12.2) H 01/30/17 02:06 INR 1.4 01/30/17 02:06 APTT 38 SECONDS (21-34) H 01/30/17 02:06 - Constitutional Appears: Well - Head Exam Head Exam: ATRAUMATIC, NORMAL INSPECTION, NORMOCEPHALIC - Eye Exam Eye Exam: EOMI, Normal appearance, PERRL Pupil Exam: NORMAL ACCOMODATION, PERRL - ENT Exam ENT Exam: Mucous Membranes Moist, Normal Exam - Neck Exam Neck Exam: Full ROM, Normal Inspection. absent: Lymphadenopathy - Respiratory Exam Respiratory Exam: Decreased Breath Sounds - Cardiovascular Exam Cardiovascular Exam: REGULAR RHYTHM, +S1, +S2 - GI/Abdominal Exam GI & Abdominal Exam: Soft, Diminished Bowel Sounds - Rectal Exam Rectal Exam: Deferred Assessment and Plan (1) Pneumonia Status: Acute (2) UTI (urinary tract infection) Status: Acute (3) Upper respiratory infection Status: Acute (4) Aggressive behavior Status: Acute (5) Alzheimer's dementia Status: Acute (6) Fall Status: Acute (7) Head injury Status: Acute (8) Polyuria Status: Acute (9) Seizure Status: Acute
--- NOTE | 2017-02-03 19:13 | PCM.PSYCH ---
Initial Psychiatric Evaluation - Initial Psychiatric Evaluation Chief Complaint (in patient's own words): "They won't let me get out of here" Patient's Reaction to Hospitalization: agitated, annoyed History of Present Illness and Precipitating Events: The patient was seen, the chart was reviewed, and the case was discussed. Mr Welsh is a 76 yr old belizean male who was sent to our ED from [facility] with complaints of fever, congestion and white/yellowish productive cough. Psychiatry has now been consulted due to his agitation. The patient is an extremely poor and unreliable historian. Some of the history here was collected from a previous psychiatric note. Decline in cognition from previous admission is noted as patient is now not able to answer most of my questions compared with previous admission. He is AAOx0. Patient presented to be paranoid as he kept stating "I'm here as a prisoner" and "The clay washer needs to give me my freedom ". The patient's speech was normal, pt's thought process is tangential. Patient was irritable and agitated that I was asking him questions. Psychiatric hx: denied admissions, denied suicidal attempts Medical hx: BPH, HTN, DM, hx of seizures, left leg below knee amputation Allergies: NKA Social hx: lives at [facility] Family hx: denied Current Medications: Active Medications Generic Name Dose Route Start Last Admin Trade Name Freq PRN Reason Stop Dose Admin Acetaminophen 325 mg 01/30/17 08:31 02/02/17 00:48 Tylenol 325mg Tab PO 325 mg Q4H PRN Administration Pain, Mild (1-3) Albuterol/Ipratropium 3 ml 01/30/17 14:00 02/03/17 13:49 Duoneb 3 Mg/0.5 Mg (3 Ml) Ud INH Not Given RQ6 [facility] Aspirin 81 mg 01/30/17 10:00 02/03/17 10:34 Aspirin Chewable PO 81 mg DAILY [facility] Administration Brimonidine Tartrate 0 ml 01/31/17 09:40 02/03/17 10:35 Alphagan 0.2% Opht OU 2 drop BID [facility] Administration Divalproex Sodium 250 mg 01/30/17 10:00 02/03/17 10:35 Depakote Er PO 250 mg DAILY [facility] Administration Enoxaparin Sodium 40 mg 01/30/17 10:00 02/03/17 10:36 Lovenox SC 40 mg DAILY [facility] Administration Gabapentin 300 mg 01/30/17 10:00 02/03/17 17:28 Neurontin PO 300 mg BID [facility] Administration Ceftriaxone Sodium 50 mls @ 100 mls/hr 01/30/17 10:00 02/03/17 10:37 Rocephin Iv 1 Gm Duplex IVPB 100 mls/hr DAILY [facility] Administration Azithromycin 500 mg/ Sodium 250 mls @ 167 mls/hr 01/30/17 09:30 02/03/17 10: 37 Chloride IVPB 167 mls/hr Q24H [facility] Administration Latanoprost 0 ml 01/31/17 09:38 02/02/17 22:28 Xalatan Opht OU 2.5 ml HS [facility] Administration Levetiracetam 500 mg 01/30/17 10:00 02/03/17 17:28 Keppra PO 500 mg BID [facility] Administration Lorazepam 0.5 mg 01/30/17 08:31 Ativan PO Q8H PRN Anxiety Metoprolol Succinate 25 mg 01/30/17 10:00 02/03/17 10:35 Toprol Xl PO 25 mg DAILY [facility] Administration Mirtazapine 7.5 mg 01/30/17 22:00 02/02/17 22:27 Remeron PO 7.5 mg HS [facility] Administration Rosuvastatin Calcium 5 mg 01/30/17 22:00 02/02/17 22:29 Crestor PO 5 mg HS [facility] Administration Tamsulosin HCl 0.4 mg 01/30/17 10:00 02/03/17 10:35 Flomax PO 0.4 mg DAILY [facility] Administration Past Psychiatric History - Past Psychiatric History Pertinent Medical Hx (Current Medical&Sleep Prob, Allergies): Allergies Allergy/AdvReac Type Severity Reaction Status Date / Time No Known Allergies Allergy Verified 01/30/17 01:43 Acetaminophen 325 mg PO Q4H PRN 10/27/16 Aspirin 81 mg PO DAILY 10/27/16 Atorvastatin [Lipitor] 10 mg PO DAILY 10/27/16 Brimonidine 0.15% [Alphagan P 5 Ml] 1 drop OP BID 10/27/16 Divalproex [Depakote ER] 250 mg PO DAILY 10/27/16 Gabapentin [Neurontin] 300 mg PO BID 10/27/16 Latanoprost 0.005% Opht [Xalatan Opht] 1 drop BOTHEYES HS 10/27/16 Levetiracetam 500 mg PO BID 10/27/16 Lorazepam [Ativan] 0.5 mg PO Q8H PRN 10/27/16 Magnesium Hydroxide [Milk Of Magnesia] 30 ml PO HS PRN 10/27/16 Magnesium Oxide [Magox 400] 400 mg PO BID 10/27/16 Metoprolol Tartrate [Lopressor] 25 mg PO DAILY 10/27/16 Mirtazapine [Remeron] 7.5 mg PO HS 10/27/16 Pantoprazole [Protonix EC Tab] 20 mg PO BID 10/27/16 Tamsulosin [Flomax] 0.4 mg PO DAILY 10/27/16 Review of Systems - Psychiatric Psychiatric: Irritability Mental Status Examination - Personal Presentation Personal Presentation: Looks stated age - Affect Affect: Other (labile) - Motor Activity Motor Activity: Calm - Reliability in Providing Information Reliability in Providing Information: Poor, due to cognitve impairment - Speech Speech: Disorganized - Mood Mood: Other (irritable) - Formal Thought Process Formal Thought Process: Delusions - Hallucinations/Delusions Delusions: Persecution - Obsessions/Compulsions Obsessions: No Compulsions: No - Cognitive Functions Sensorium: Alert Attention/Concentration: Easily distracted Judgement: Imparied, as evidence by: Lack of insight into illness Memory: Recent impaired, as evidence by: Inability to recall events of the day - Risk Risk: Elopement, Diminished functioning - Limitations Limitations: Other (multiple medical issues) DSM 5 DX - DSM 5 DSM 5 Diagnosis: r/o MDD with agitation r/o mood disorder due to [facility] r/o dementia with behavioral disturbances and delusions - Recommended/Plan of Treatment Treatment Recommendations and Plan of Treatment: will continue all meds from [place] continue Remeron for insomnia and MDD continue depakote 250mg hs for mood stabilization continue gabapentin 300mg po bid continue levetriacetam 500mg po bid continue lorazepam 0.5mg po q8 prn pt was seen by medical team will monitor closely SW evaluation Discharge Plan and Discharge Criteria: Pt will be not depressed or manic, will be more hopeful, will be not psychotic or anxious, will be tolerating medications well, will not have major side effects, will be able to function, will not pose threat to self or others
--- NOTE | 2017-02-03 20:59 | CON ---
UROLOGY CONSULTATION DATE: 02/02/2017 HISTORY OF PRESENT ILLNESS: The patient is a 76-year-old male with history of prostate cancer. The patient is in otherwise fair health. The patient is unable to give the detail of his history of prostate cancer. The patient reports that he voids with fair urinary stream. He reports he has urinary frequency. At times, he has incontinence. The patient reports no history of hematuria. The patient does have occasional back pain. The patient has fair appetite. The patient has a lower extremity amputation. There has been no nausea or vomiting. The patient is oriented to person. The patient was also found to have an elevated CMP assay. PHYSICAL EXAMINATION: GENERAL: The patient is a well-developed, well-nourished elderly male. The patient is awake. He is conversant. ABDOMEN: Soft, nontender, nondistended. No mass or organomegaly. BACK: No CVA tenderness. GENITALIA: Without inflammation. LABORATORY DATA: Reviewed as well. IMPRESSION: Prostate cancer. The details of patient's *------* prostate cancer are to be further investigated. I will order a bone scan. Consider instituting hormonal therapy. Possible Lupron therapy. Possible orchiectomy. Further therapy to follow according to the patient's clinical course as well as results of above. Thank you for recommending the patient for urology consultation. Sierra Cheng MD
[2017-02-03] MEDS: Latanoprost 2.5 ml Opht Soln OU SCH (21:12)
[2017-02-03 23:06] LABS: RBC URINE 55 /hpf (0-3); URINE BACTERIA OCC (<OCC); URINE BILIRUBIN NEGATIVE (NEGATIVE); URINE COLOR Yellow (YELLOW); URINE GLUCOSE (UA) NORMAL (Normal); URINE KETONE TRACE mg/dL (NEGATIVE); URINE PROTEIN 1+ mg/dL (NEGATIVE); WBC URINE 5 /hpf (0-5)
[2017-02-03 23:07] LABS: URINE BLOOD 3+ (NEGATIVE); URINE LEUKOCYTE ESTERASE TRACE Leu/uL (Negative)
[2017-02-04] MEDS: Albuterol-Ipratrop 3 mg / 0.5 (3 ml) UD INH SCH ×2 (07:57→13:19)
[2017-02-04] MEDS: Azithromycin 500 MG in Sodium Chloride 0.9% 250 ML IVPB SCH (09:36)
[2017-02-04] MEDS: Metoprolol Succinate 25 mg XL Tab PO SCH (09:39)
[2017-02-04] MEDS: Enoxaparin 40 mg Syringe SC SCH (09:39)
[2017-02-04] MEDS: cefTRIAXone IV 1 gm in Dextros 50 ML IVPB SCH (11:34)
[2017-02-04] MEDS: Brimonidine 0.2% Opth Sol (5ml) OU SCH ×2 (12:16→17:11)
--- NOTE | 2017-02-04 12:30 | PCM.PYCHPN ---
Psychiatric Progress Note - Psychiatric Progress Note Patient seen today, length of contact: 16 min Patient Chief Complaint: I am feeling calixto Problems Identified/Issues Discussed: Patient seen and evaluated, chart reviewed and discussed with the nurse. Patient reports improvement in his mood but still reports somewhat irritability and agitation. He remained paranoid and delusional but he denies any feelings of hopelessness and helplessness and denies any auditory or visual hallucinations or any AVH. He is taking medication and denies any side effects. Supportive therapy and psychoeducation were given. Medication Change: No Medical Record Reviewed: Yes Mental Status Examination - Cognitive Function Orientation: Person, Place Memory: Impaired Attention: WNL Concentration: WNL Association: Loose Fund of Knowledge: Poor - Mood Mood: Anxious - Affect Affect: Constricted - Speech Speech: Soft - Formal Thought Process Formal Thought Process: Delusions - Suicidal Ideation Suicidal Ideation: No - Homicidal Ideation Homicidal Ideation: No Goal/Treatment Plan - Goal/Treatment Plan Need for Continued Stay: Discharge may exacerbated symptoms, Severe functional impairment Progress Toward Problem(s) and Goals/Treatment Plan: Patient psychiatrically stable and cleared to go back to the detention. - Smoking Cessation Smoking Cessation Initiated: No
[2017-02-04 16:55] LABS: CHLORIDE 102 mmol/L (98-107)
[2017-02-04 16:56] LABS: POTASSIUM 3.8 mmol/L (3.6-5.2); SODIUM 140 mmol/L (132-148)
[2017-02-04 16:58] LABS: ALB/GLOB RATIO 0.8 (1.0-2.1); ALKALINE PHOSPHATASE 198 U/L (38-126); AST/SGOT 31 U/L (17-59); BILIRUBIN,TOTAL 0.5 mg/dL (0.2-1.3); BLOOD UREA NITROGEN 15 mg/dL (9-20); CARBON DIOXIDE 29 mmol/L (22-30); GFR AFRICAN-AMERICAN > 60; GLUCOSE,RANDOM 97 mg/dL (75-110); TOTAL PROTEIN 6.8 g/dL (6.3-8.3)
[2017-02-04 16:59] LABS: ALT/SGPT 38 U/L (21-72); CALCIUM 8.9 mg/dl (8.6-10.4)
[2017-02-04 17:02] LABS: BASO # 0.1 K/uL (0.0-0.2); BASO % 0.6 % (0.0-2.0); EOS % 0.2 % (0.0-4.0); HEMATOCRIT 29.6 % (35.0-51.0); LYMPH # 1.6 K/uL (1.0-4.3); LYMPH % 12.2 % (20.0-40.0); MEAN CORPUSCULAR HEMOGLOBIN 25.5 pg (27.0-31.0); MEAN CORPUSCULAR HGB CONC 32.3 g/dL (33.0-37.0); MEAN PLATELET VOLUME 9.5 fL (7.2-11.7); MONO # 1.9 K/uL (0.0-0.8); MONO % 14.9 % (0.0-10.0); NRBC % 0.1 % (0.0-2.0); RED CELL DISTRIBUTION WIDTH 15.2 % (11.5-14.5); WHITE BLOOD COUNT 12.9 K/uL (4.8-10.8)
--- NOTE | 2017-02-04 18:55 | CP.PCM.PN ---
Subjective - Date & Time of Evaluation Date of Evaluation: 02/04/17 Time of Evaluation: 08:20 - Subjective Subjective: clinically same Objective - Vital Signs/Intake and Output Vital Signs (last 24 hours): Temp Pulse Resp BP Pulse Ox 97.9 F 76 20 140/79 100 02/04/17 15:00 02/04/17 15:00 02/04/17 15:00 02/04/17 15:00 02/04/17 15:00 Intake and Output: 02/04/17 02/04/17 06:59 18:59 Intake Total 350 700 Output Total 0 Balance 350 700 - Medications Medications: Current Medications Acetaminophen (Tylenol 325mg Tab) 325 mg PO Q4H PRN PRN Reason: Pain, Mild (1-3) Last Admin: 02/02/17 00:48 Dose: 325 mg Aspirin (Aspirin Chewable) 81 mg PO DAILY [facility] Last Admin: 02/04/17 09:39 Dose: 81 mg Brimonidine Tartrate (Alphagan 0.2% Opht) 0 ml OU BID [facility] Last Admin: 02/04/17 17:11 Dose: 1 drop Divalproex Sodium (Depakote Er) 250 mg PO DAILY [facility] Last Admin: 02/04/17 09:58 Dose: 250 mg Enoxaparin Sodium (Lovenox) 40 mg SC DAILY [facility] Last Admin: 02/04/17 09:39 Dose: 40 mg Gabapentin (Neurontin) 300 mg PO BID [facility] Last Admin: 02/04/17 17:11 Dose: 300 mg Azithromycin 500 mg/ Sodium (Chloride) 250 mls @ 167 mls/hr IVPB Q24H [facility] Last Admin: 02/04/17 09:36 Dose: 167 mls/hr Latanoprost (Xalatan Opht) 0 ml OU HS [facility] Last Admin: 02/03/17 21:12 Dose: 2.5 ml Levetiracetam (Keppra) 500 mg PO BID [facility] Last Admin: 02/04/17 17:11 Dose: 500 mg Lorazepam (Ativan) 0.5 mg PO Q8H PRN PRN Reason: Anxiety Metoprolol Succinate (Toprol Xl) 25 mg PO DAILY [facility] Last Admin: 02/04/17 09:39 Dose: 25 mg Mirtazapine (Remeron) 7.5 mg PO HS [facility] Last Admin: 02/03/17 21:11 Dose: 7.5 mg Rosuvastatin Calcium (Crestor) 5 mg PO HS [facility] Last Admin: 02/03/17 21:11 Dose: 5 mg Tamsulosin HCl (Flomax) 0.4 mg PO DAILY [facility] Last Admin: 02/04/17 09:40 Dose: 0.4 mg - Labs Labs: 02/04/17 16:38 02/04/17 16:38 PT 15.5 SECONDS (9.7-12.2) H 01/30/17 02:06 INR 1.4 01/30/17 02:06 APTT 38 SECONDS (21-34) H 01/30/17 02:06 - Constitutional Appears: Well - Head Exam Head Exam: ATRAUMATIC, NORMAL INSPECTION, NORMOCEPHALIC - Eye Exam Eye Exam: EOMI, Normal appearance, PERRL Pupil Exam: NORMAL ACCOMODATION, PERRL - ENT Exam ENT Exam: Mucous Membranes Moist, Normal Exam - Neck Exam Neck Exam: Full ROM, Normal Inspection. absent: Lymphadenopathy - Respiratory Exam Respiratory Exam: Decreased Breath Sounds - Cardiovascular Exam Cardiovascular Exam: REGULAR RHYTHM, +S1, +S2 - GI/Abdominal Exam GI & Abdominal Exam: Soft, Diminished Bowel Sounds - Rectal Exam Rectal Exam: Deferred Assessment and Plan (1) Pneumonia Status: Acute (2) UTI (urinary tract infection) Status: Acute (3) Upper respiratory infection Status: Acute (4) Aggressive behavior Status: Acute (5) Alzheimer's dementia Status: Acute (6) Fall Status: Acute (7) Head injury Status: Acute (8) Polyuria Status: Acute (9) Seizure Status: Acute - Assessment and Plan (Free Text) Plan: Case seen and discussed with the staff and the resident status post psych evaluations status post IV antibiotic Patient is eating okay patient is on Zithromax and Rocephin continue same
[2017-02-04] MEDS: Latanoprost 2.5 ml Opht Soln OU SCH (21:14)
[2017-02-05] MEDS: Azithromycin 500 MG in Sodium Chloride 0.9% 250 ML IVPB SCH (09:29)
[2017-02-05] MEDS: Enoxaparin 40 mg Syringe SC SCH (09:32)
[2017-02-05] MEDS: Metoprolol Succinate 25 mg XL Tab PO SCH (09:33)
[2017-02-05] MEDS: Brimonidine 0.2% Opth Sol (5ml) OU SCH ×2 (09:33→17:18)
[2017-02-05] MEDS: cefTRIAXone IV 1 gm in Dextros 50 ML IVPB SCH (10:00)
--- NOTE | 2017-02-05 13:42 | CP.PCM.PN ---
Subjective - Date & Time of Evaluation Date of Evaluation: 02/05/17 Time of Evaluation: 13:35 - Subjective Subjective: PT SEEN AND EXAMINED TODAY, RESP EASY AND UNLABORED, NAD Objective - Vital Signs/Intake and Output Vital Signs (last 24 hours): Temp Pulse Resp BP Pulse Ox 99.6 F 99 H 20 174/81 H 98 02/05/17 08:40 02/05/17 08:40 02/05/17 08:40 02/05/17 08:40 02/05/17 08:40 Intake and Output: 02/05/17 02/05/17 06:59 18:59 Intake Total 100 Balance 100 - Medications Medications: Current Medications Acetaminophen (Tylenol 325mg Tab) 325 mg PO Q4H PRN PRN Reason: Pain, Mild (1-3) Last Admin: 02/02/17 00:48 Dose: 325 mg Aspirin (Aspirin Chewable) 81 mg PO DAILY [facility] Last Admin: 02/05/17 09:40 Dose: 81 mg Brimonidine Tartrate (Alphagan 0.2% Opht) 0 ml OU BID [facility] Last Admin: 02/05/17 09:33 Dose: 1 drop Divalproex Sodium (Depakote Er) 250 mg PO DAILY [facility] Last Admin: 02/05/17 09:34 Dose: 250 mg Enoxaparin Sodium (Lovenox) 40 mg SC DAILY [facility] Last Admin: 02/05/17 09:32 Dose: 40 mg Gabapentin (Neurontin) 300 mg PO BID [facility] Last Admin: 02/05/17 09:33 Dose: 300 mg Ceftriaxone Sodium (Rocephin Iv 1 Gm Duplex) 50 mls @ 100 mls/hr IVPB [facility] Last Admin: 02/05/17 10:00 Dose: 100 mls/hr Latanoprost (Xalatan Opht) 0 ml OU HS [facility] Last Admin: 02/04/17 21:14 Dose: 2.5 ml Levetiracetam (Keppra) 500 mg PO BID [facility] Last Admin: 02/05/17 09:33 Dose: 500 mg Lorazepam (Ativan) 0.5 mg PO Q8H PRN PRN Reason: Anxiety Metoprolol Succinate (Toprol Xl) 25 mg PO DAILY [facility] Last Admin: 02/05/17 09:33 Dose: 25 mg Mirtazapine (Remeron) 7.5 mg PO HS [facility] Last Admin: 02/04/17 21:15 Dose: 7.5 mg Rosuvastatin Calcium (Crestor) 5 mg PO HS [facility] Last Admin: 02/04/17 21:15 Dose: 5 mg Tamsulosin HCl (Flomax) 0.4 mg PO DAILY [facility] Last Admin: 02/05/17 09:33 Dose: 0.4 mg - Labs Labs: 02/04/17 16:38 02/04/17 16:38 PT 15.5 SECONDS (9.7-12.2) H 01/30/17 02:06 INR 1.4 01/30/17 02:06 APTT 38 SECONDS (21-34) H 01/30/17 02:06 Assessment and Plan - Assessment and Plan (Free Text) Plan: * 76 Y/O MALE WITH PMHX PROSTATE CANCER * ADMITTED FOR URINARY INCONTINENCE, FREQUENCY * RENAL US- 1.2X1.0X1.4 CM RIGHT UPPER POLE LESION AND CYST * BONE SCAN- OSSEOUS METASTATIC DISEASE THORACOLUMBAR SPINE AND PELVIS * CASE AND RESULT D/W DR ESCOBAR * CT ABD/PELIVS WITH AND WITHOUT IV CONTRAST ORDERED PER DR ESCOBAR * BUN 15 AND CREATININE 0.6 * POSSIBLE ORCHIECTOMY ON THURSDAY OR THURSDAY
[2017-02-05] MEDS ORDERED: Iodixanol 320 MG/ML 100 ML BOTTLE IV ONE (15:46)
--- NOTE | 2017-02-05 16:09 | CP.PCM.PN ---
Subjective - Date & Time of Evaluation Date of Evaluation: 02/05/17 Time of Evaluation: 08:00 - Subjective Subjective: clinically same Objective - Vital Signs/Intake and Output Vital Signs (last 24 hours): Temp Pulse Resp BP Pulse Ox 99.6 F 99 H 20 174/81 H 98 02/05/17 08:40 02/05/17 08:40 02/05/17 08:40 02/05/17 08:40 02/05/17 08:40 Intake and Output: 02/05/17 02/05/17 06:59 18:59 Intake Total 100 Balance 100 - Medications Medications: Current Medications Acetaminophen (Tylenol 325mg Tab) 325 mg PO Q4H PRN PRN Reason: Pain, Mild (1-3) Last Admin: 02/02/17 00:48 Dose: 325 mg Aspirin (Aspirin Chewable) 81 mg PO DAILY [facility] Last Admin: 02/05/17 09:40 Dose: 81 mg Brimonidine Tartrate (Alphagan 0.2% Opht) 0 ml OU BID [facility] Last Admin: 02/05/17 09:33 Dose: 1 drop Divalproex Sodium (Depakote Er) 250 mg PO DAILY [facility] Last Admin: 02/05/17 09:34 Dose: 250 mg Enoxaparin Sodium (Lovenox) 40 mg SC DAILY [facility] Last Admin: 02/05/17 09:32 Dose: 40 mg Gabapentin (Neurontin) 300 mg PO BID [facility] Last Admin: 02/05/17 09:33 Dose: 300 mg Ceftriaxone Sodium (Rocephin Iv 1 Gm Duplex) 50 mls @ 100 mls/hr IVPB DAILY [facility] Last Admin: 02/05/17 10:00 Dose: 100 mls/hr Latanoprost (Xalatan Opht) 0 ml OU HS [facility] Last Admin: 02/04/17 21:14 Dose: 2.5 ml Levetiracetam (Keppra) 500 mg PO BID [facility] Last Admin: 02/05/17 09:33 Dose: 500 mg Lorazepam (Ativan) 0.5 mg PO Q8H PRN PRN Reason: Anxiety Metoprolol Succinate (Toprol Xl) 25 mg PO DAILY [facility] Last Admin: 02/05/17 09:33 Dose: 25 mg Mirtazapine (Remeron) 7.5 mg PO HS [facility] Last Admin: 02/04/17 21:15 Dose: 7.5 mg Rosuvastatin Calcium (Crestor) 5 mg PO HS [facility] Last Admin: 02/04/17 21:15 Dose: 5 mg Tamsulosin HCl (Flomax) 0.4 mg PO DAILY [facility] Last Admin: 02/05/17 09:33 Dose: 0.4 mg - Labs Labs: 02/04/17 16:38 02/04/17 16:38 PT 15.5 SECONDS (9.7-12.2) H 01/30/17 02:06 INR 1.4 01/30/17 02:06 APTT 38 SECONDS (21-34) H 01/30/17 02:06 - Constitutional Appears: Well - Head Exam Head Exam: ATRAUMATIC, NORMAL INSPECTION, NORMOCEPHALIC - Eye Exam Eye Exam: EOMI, Normal appearance, PERRL Pupil Exam: NORMAL ACCOMODATION, PERRL - ENT Exam ENT Exam: Mucous Membranes Moist, Normal Exam - Neck Exam Neck Exam: Full ROM, Normal Inspection. absent: Lymphadenopathy - Respiratory Exam Respiratory Exam: Decreased Breath Sounds - Cardiovascular Exam Cardiovascular Exam: REGULAR RHYTHM, +S1, +S2 - GI/Abdominal Exam GI & Abdominal Exam: Soft, Diminished Bowel Sounds - Rectal Exam Rectal Exam: Deferred Assessment and Plan (1) Pneumonia Status: Acute (2) UTI (urinary tract infection) Status: Acute (3) Upper respiratory infection Status: Acute (4) Aggressive behavior Status: Acute (5) Alzheimer's dementia Status: Acute (6) Fall Status: Acute (7) Head injury Status: Acute (8) Polyuria Status: Acute (9) Seizure Status: Acute
--- NOTE | 2017-02-05 17:18 | CT ---
PROCEDURE: CT Abdomen and Pelvis with and without intravenous contrast HISTORY: Renal mass evaluation COMPARISON: Renal ultrasound performed 02/02/17 TECHNIQUE: Axial images of the abdomen were obtained in the pre contrast, portal venous and delayed phases of enhancement. Coronal and sagittal reformats were generated and reviewed. Contrast dose: 100 cc Visipaque 320 Radiation dose: Total exam DLP = 627.03 mGy-cm. This CT exam was performed using one or more of the following dose reduction techniques: Automated exposure control, adjustment of the mA and/or kV according to patient size, and/or use of iterative reconstruction technique. FINDINGS: Patient's arms were not elevated with resultant streak artifact. Patient unable to breath hold with resultant motion/ respiratory artifact. LOWER THORAX: Partially imaged right lower lobe consolidation. No visible pleural effusion or pneumothorax. Partially imaged dense coronary artery calcifications. Small hiatal hernia. LIVER: Unremarkable. GALLBLADDER AND BILE DUCTS: Gallbladder limits evaluation. Otherwise unremarkable. PANCREAS: Limited visualization. Grossly unremarkable. SPLEEN: Unremarkable. ADRENALS: Unremarkable. KIDNEYS AND URETERS: 8 mm right upper pole hyperdense focus (series 2, image 38), indeterminate. Complex left upper pole hypodense lesion consistent with complex cyst demonstrated on ultrasound performed 02/02/17. Additional 8 mm hypodense lesion in the left lower pole, too small to characterize. VASCULATURE: Dense atherosclerotic calcifications of the aorta and branches. No aortic aneurysm. BOWEL: Stomach is nondistended. Lack of oral contrast limits evaluation for bowel pathology. Bowel loops appear within normal limits of caliber without evidence of obstruction. Moderate to severe diffuse constipation. APPENDIX: No secondary signs of acute appendicitis. PERITONEUM: No significant free fluid. No definite free air. LYMPH NODES: No bulky adenopathy. BLADDER: Mildly thick-walled urinary bladder. REPRODUCTIVE: The prostate gland measures approximately 4.1 x 4.9 cm. BONES: Diffuse osseous demineralization. Extensive degenerative changes. Innumerable sclerotic foci throughout the visualized osseous structures worrisome for metastases. OTHER FINDINGS: None. IMPRESSION: Limited study. Partially imaged right lower lobe consolidation. 8 mm right upper pole hyperdense focus, indeterminate. Complex left upper pole hypodense lesion consistent with complex cyst demonstrated on ultrasound performed 02/02/17. Additional 8 mm hypodense lesion in the left lower pole, too small to characterize. Innumerable sclerotic foci throughout the visualized osseous structures worrisome for metastases. Moderate to severe diffuse constipation. Mildly thick-walled urinary bladder. Recommend correlation with urinalysis. Additional findings as above.
[2017-02-05] MEDS: Latanoprost 2.5 ml Opht Soln OU SCH (21:21)
[2017-02-06] MEDS: Metoprolol Succinate 25 mg XL Tab PO SCH (09:52)
[2017-02-06] MEDS: Enoxaparin 40 mg Syringe SC SCH (09:53)
[2017-02-06] MEDS: cefTRIAXone IV 1 gm in Dextros 50 ML IVPB SCH (09:53)
[2017-02-06] MEDS: Brimonidine 0.2% Opth Sol (5ml) OU SCH ×2 (09:53→17:18)
--- NOTE | 2017-02-06 09:57 | CP.PCM.PN ---
Subjective - Date & Time of Evaluation Date of Evaluation: 02/06/17 Time of Evaluation: 08:00 - Subjective Subjective: clinically same Objective - Vital Signs/Intake and Output Vital Signs (last 24 hours): Temp Pulse Resp BP Pulse Ox 98.7 F 67 20 149/77 100 02/06/17 01:00 02/06/17 01:00 02/06/17 01:00 02/06/17 01:00 02/06/17 01:00 Intake and Output: 02/06/17 02/06/17 06:59 18:59 Intake Total 200 Balance 200 - Medications Medications: Current Medications Acetaminophen (Tylenol 325mg Tab) 325 mg PO Q4H PRN PRN Reason: Pain, Mild (1-3) Last Admin: 02/02/17 00:48 Dose: 325 mg Aspirin (Aspirin Chewable) 81 mg PO DAILY [facility] Last Admin: 02/06/17 09:52 Dose: 81 mg Brimonidine Tartrate (Alphagan 0.2% Opht) 0 ml OU BID [facility] Last Admin: 02/06/17 09:53 Dose: 1 drop Divalproex Sodium (Depakote Er) 250 mg PO DAILY [facility] Last Admin: 02/06/17 09:52 Dose: 250 mg Enoxaparin Sodium (Lovenox) 40 mg SC DAILY [facility] Last Admin: 02/06/17 09:53 Dose: 40 mg Gabapentin (Neurontin) 300 mg PO BID [facility] Last Admin: 02/06/17 09:53 Dose: 300 mg Ceftriaxone Sodium (Rocephin Iv 1 Gm Duplex) 50 mls @ 100 mls/hr IVPB DAILY [facility] Last Admin: 02/06/17 09:53 Dose: 100 mls/hr Latanoprost (Xalatan Opht) 0 ml OU HS [facility] Last Admin: 02/05/17 21:21 Dose: 2.5 ml Levetiracetam (Keppra) 500 mg PO BID [facility] Last Admin: 02/06/17 09:52 Dose: 500 mg Metoprolol Succinate (Toprol Xl) 25 mg PO DAILY [facility] Last Admin: 02/06/17 09:52 Dose: 25 mg Mirtazapine (Remeron) 7.5 mg PO HS [facility] Last Admin: 02/05/17 21:18 Dose: 7.5 mg Rosuvastatin Calcium (Crestor) 5 mg PO HS [facility] Last Admin: 02/05/17 21:18 Dose: 5 mg Tamsulosin HCl (Flomax) 0.4 mg PO DAILY [facility] Last Admin: 02/06/17 09:52 Dose: 0.4 mg - Labs Labs: 02/04/17 16:38 02/04/17 16:38 PT 15.5 SECONDS (9.7-12.2) H 01/30/17 02:06 INR 1.4 01/30/17 02:06 APTT 38 SECONDS (21-34) H 01/30/17 02:06 - Constitutional Appears: Well - Head Exam Head Exam: ATRAUMATIC, NORMAL INSPECTION, NORMOCEPHALIC - Eye Exam Eye Exam: EOMI, Normal appearance, PERRL Pupil Exam: NORMAL ACCOMODATION, PERRL - ENT Exam ENT Exam: Mucous Membranes Moist, Normal Exam - Neck Exam Neck Exam: Full ROM, Normal Inspection. absent: Lymphadenopathy - Respiratory Exam Respiratory Exam: Decreased Breath Sounds - Cardiovascular Exam Cardiovascular Exam: REGULAR RHYTHM, +S1, +S2 - GI/Abdominal Exam GI & Abdominal Exam: Soft, Diminished Bowel Sounds - Rectal Exam Rectal Exam: Deferred Assessment and Plan (1) Pneumonia Status: Acute (2) UTI (urinary tract infection) Status: Acute (3) Upper respiratory infection Status: Acute (4) Aggressive behavior Status: Acute (5) Alzheimer's dementia Status: Acute (6) Fall Status: Acute (7) Head injury Status: Acute (8) Polyuria Status: Acute (9) Seizure Status: Acute
[2017-02-06] MEDS: Latanoprost 2.5 ml Opht Soln OU SCH (21:23)
--- NOTE | 2017-02-06 23:17 | PCM.URO ---
Urology Progress Note - General General: No Complaints, Tolerating Diet - Subjective Abdominal Pain: No Flank Pain: No Nausea: No Dysuria: No Hematuria: No Fever & Chills: No Other: Pt is poor historian due to dementia - Objective Lab Studies: Reviewed Intake & Output: Intake & Output 02/06/17 02/06/17 02/07/17 06:59 18:59 06:59 Intake Total 200 200 300 Balance 200 200 300 Intake: Intake, IV Amount 50 Left Antecubital 50 Oral 200 150 300 Other: # Voids Urine, Voided 2 # Bowel Movements 0 1 Vital Signs: Vital Signs - 24 hr 02/06/17 02/06/17 02/06/17 01:00 08:00 15:00 Temperature 98.7 F 98.2 F 98.4 F Pulse Rate 67 68 74 Respiratory 20 20 20 Rate Blood Pressure 149/77 157/71 H 162/73 H O2 Sat by Pulse 100 99 100 Oximetry - Physical Exam Abdominal Exam: Soft, Non-Tender, Non-Distended Bowel Sounds: Normal Back: No CVA Tenderness Genitalia: Without Inflammation - Plan Additional Information: Imp: prostate cancer. bone metastases. elevated PSA. rec/plan: obtain serum testosterone. hormonal rx - Androgen deprivation therapy, either as Leuprolide injection or orchiectomy. YS. 02/06/2017. 11:05 AM
[2017-02-07] MEDS: Brimonidine 0.2% Opth Sol (5ml) OU SCH ×2 (09:51→18:00)
[2017-02-07] MEDS: Metoprolol Succinate 25 mg XL Tab PO SCH (09:51)
[2017-02-07] MEDS: cefTRIAXone IV 1 gm in Dextros 50 ML IVPB SCH (09:54)
--- NOTE | 2017-02-07 11:24 | CP.PCM.PN ---
Subjective - Date & Time of Evaluation Date of Evaluation: 02/07/17 Time of Evaluation: 08:00 - Subjective Subjective: clinically same Objective - Vital Signs/Intake and Output Vital Signs (last 24 hours): Temp Pulse Resp BP Pulse Ox 98.1 F 66 20 172/96 H 100 02/07/17 09:33 02/07/17 09:33 02/07/17 09:33 02/07/17 09:33 02/07/17 09:33 Intake and Output: 02/07/17 02/07/17 06:59 18:59 Intake Total 420 Balance 420 - Medications Medications: Current Medications Acetaminophen (Tylenol 325mg Tab) 325 mg PO Q4H PRN PRN Reason: Pain, Mild (1-3) Last Admin: 02/02/17 00:48 Dose: 325 mg Aspirin (Aspirin Chewable) 81 mg PO DAILY [facility] Last Admin: 02/07/17 09:50 Dose: 81 mg Brimonidine Tartrate (Alphagan 0.2% Opht) 0 ml OU BID [facility] Last Admin: 02/07/17 09:51 Dose: 1 drop Divalproex Sodium (Depakote Er) 250 mg PO DAILY [facility] Last Admin: 02/07/17 09:52 Dose: 250 mg Gabapentin (Neurontin) 300 mg PO BID [facility] Last Admin: 02/07/17 09:50 Dose: 300 mg Ceftriaxone Sodium (Rocephin Iv 1 Gm Duplex) 50 mls @ 100 mls/hr IVPB DAILY [facility] Last Admin: 02/07/17 09:54 Dose: 100 mls/hr Latanoprost (Xalatan Opht) 0 ml OU HS [facility] Last Admin: 02/06/17 21:23 Dose: 2.5 ml Levetiracetam (Keppra) 500 mg PO BID [facility] Last Admin: 02/07/17 09:51 Dose: 500 mg Metoprolol Succinate (Toprol Xl) 25 mg PO DAILY [facility] Last Admin: 02/07/17 09:51 Dose: 25 mg Mirtazapine (Remeron) 7.5 mg PO HS [facility] Last Admin: 02/06/17 21:23 Dose: 7.5 mg Rosuvastatin Calcium (Crestor) 5 mg PO HS [facility] Last Admin: 02/06/17 21:24 Dose: 5 mg Tamsulosin HCl (Flomax) 0.4 mg PO DAILY [facility] Last Admin: 02/07/17 09:51 Dose: 0.4 mg - Labs Labs: 02/04/17 16:38 02/04/17 16:38 PT 15.5 SECONDS (9.7-12.2) H 01/30/17 02:06 INR 1.4 01/30/17 02:06 APTT 38 SECONDS (21-34) H 01/30/17 02:06 - Constitutional Appears: Well - Head Exam Head Exam: ATRAUMATIC, NORMAL INSPECTION, NORMOCEPHALIC - Eye Exam Eye Exam: EOMI, Normal appearance, PERRL Pupil Exam: NORMAL ACCOMODATION, PERRL - ENT Exam ENT Exam: Mucous Membranes Moist, Normal Exam - Neck Exam Neck Exam: Full ROM, Normal Inspection. absent: Lymphadenopathy - Respiratory Exam Respiratory Exam: Decreased Breath Sounds - Cardiovascular Exam Cardiovascular Exam: REGULAR RHYTHM, +S1, +S2 - GI/Abdominal Exam GI & Abdominal Exam: Soft, Diminished Bowel Sounds - Rectal Exam Rectal Exam: Deferred Assessment and Plan (1) Pneumonia Status: Acute (2) UTI (urinary tract infection) Status: Acute (3) Upper respiratory infection Status: Acute (4) Aggressive behavior Status: Acute (5) Alzheimer's dementia Status: Acute (6) Fall Status: Acute (7) Head injury Status: Acute (8) Polyuria Status: Acute (9) Seizure Status: Acute - Assessment and Plan (Free Text) Assessment: Case seen and discussed with the staff and the residents patient's poor historian consent to be obtained for surgery for the prostate by by public guardian E continue same clearance for surgery patient has very high pSA patient USED to be seen by Dr. Gonsalez case discussed with Dr. Cheng For possible surgery
[2017-02-07] MEDS: Latanoprost 2.5 ml Opht Soln OU SCH (21:31)
--- NOTE | 2017-02-08 09:46 | CP.PCM.PN ---
Subjective - Date & Time of Evaluation Date of Evaluation: 02/08/17 Time of Evaluation: 07:40 - Subjective Subjective: clinically same Objective - Vital Signs/Intake and Output Vital Signs (last 24 hours): Temp Pulse Resp BP Pulse Ox 98.1 F 63 20 168/62 H 100 02/08/17 08:53 02/08/17 08:53 02/08/17 08:53 02/08/17 08:53 02/08/17 08:53 - Medications Medications: Current Medications Acetaminophen (Tylenol 325mg Tab) 325 mg PO Q4H PRN PRN Reason: Pain, Mild (1-3) Last Admin: 02/02/17 00:48 Dose: 325 mg Aspirin (Aspirin Chewable) 81 mg PO DAILY [facility] Last Admin: 02/07/17 09:50 Dose: 81 mg Brimonidine Tartrate (Alphagan 0.2% Opht) 0 ml OU BID [facility] Last Admin: 02/07/17 18:00 Dose: 1 drop Divalproex Sodium (Depakote Er) 250 mg PO DAILY [facility] Last Admin: 02/07/17 09:52 Dose: 250 mg Gabapentin (Neurontin) 300 mg PO BID [facility] Last Admin: 02/07/17 17:30 Dose: 300 mg Ceftriaxone Sodium (Rocephin Iv 1 Gm Duplex) 50 mls @ 100 mls/hr IVPB DAILY [facility] Last Admin: 02/07/17 09:54 Dose: 100 mls/hr Latanoprost (Xalatan Opht) 0 ml OU HS [facility] Last Admin: 02/07/17 21:31 Dose: 2.5 ml Levetiracetam (Keppra) 500 mg PO BID [facility] Last Admin: 02/07/17 17:30 Dose: 500 mg Metoprolol Succinate (Toprol Xl) 25 mg PO DAILY [facility] Last Admin: 02/07/17 09:51 Dose: 25 mg Mirtazapine (Remeron) 7.5 mg PO HS [facility] Last Admin: 02/07/17 21:31 Dose: 7.5 mg Rosuvastatin Calcium (Crestor) 5 mg PO HS [facility] Last Admin: 02/07/17 21:31 Dose: 5 mg Tamsulosin HCl (Flomax) 0.4 mg PO DAILY [facility] Last Admin: 02/07/17 09:51 Dose: 0.4 mg - Labs Labs: 02/04/17 16:38 02/04/17 16:38 PT 15.5 SECONDS (9.7-12.2) H 01/30/17 02:06 INR 1.4 01/30/17 02:06 APTT 38 SECONDS (21-34) H 01/30/17 02:06 - Constitutional Appears: Well - Head Exam Head Exam: ATRAUMATIC, NORMAL INSPECTION, NORMOCEPHALIC - Eye Exam Eye Exam: EOMI, Normal appearance, PERRL Pupil Exam: NORMAL ACCOMODATION, PERRL - ENT Exam ENT Exam: Mucous Membranes Moist, Normal Exam - Neck Exam Neck Exam: Full ROM, Normal Inspection. absent: Lymphadenopathy - Respiratory Exam Respiratory Exam: Decreased Breath Sounds - Cardiovascular Exam Cardiovascular Exam: REGULAR RHYTHM, +S1, +S2 - GI/Abdominal Exam GI & Abdominal Exam: Soft, Diminished Bowel Sounds - Rectal Exam Rectal Exam: Deferred Assessment and Plan (1) Pneumonia Status: Acute (2) UTI (urinary tract infection) Status: Acute (3) Upper respiratory infection Status: Acute (4) Aggressive behavior Status: Acute (5) Alzheimer's dementia Status: Acute (6) Fall Status: Acute (7) Head injury Status: Acute (8) Polyuria Status: Acute (9) Seizure Status: Acute
[2017-02-08] MEDS: Metoprolol Succinate 25 mg XL Tab PO SCH (10:56)
[2017-02-08] MEDS: Brimonidine 0.2% Opth Sol (5ml) OU SCH ×2 (10:57→18:20)
[2017-02-08] MEDS: cefTRIAXone IV 1 gm in Dextros 50 ML IVPB SCH (14:16)
[2017-02-08] MEDS: Latanoprost 2.5 ml Opht Soln OU SCH (21:53)
[2017-02-09] MEDS: Metoprolol Succinate 25 mg XL Tab PO SCH (09:34)
[2017-02-09] MEDS: Brimonidine 0.2% Opth Sol (5ml) OU SCH ×2 (09:37→17:26)
[2017-02-09] MEDS: cefTRIAXone IV 1 gm in Dextros 50 ML IVPB SCH (10:08)
--- NOTE | 2017-02-09 12:52 | CP.PCM.PN ---
Subjective - Date & Time of Evaluation Date of Evaluation: 02/09/17 Time of Evaluation: 07:40 - Subjective Subjective: clinically same Objective - Vital Signs/Intake and Output Vital Signs (last 24 hours): Temp Pulse Resp BP Pulse Ox 98.6 F 75 20 179/84 H 98 02/09/17 07:28 02/09/17 07:28 02/09/17 07:28 02/09/17 07:28 02/09/17 07:28 Intake and Output: 02/09/17 02/09/17 06:59 18:59 Intake Total 200 150 Balance 200 150 - Medications Medications: Current Medications Acetaminophen (Tylenol 325mg Tab) 325 mg PO Q4H PRN PRN Reason: Pain, Mild (1-3) Last Admin: 02/02/17 00:48 Dose: 325 mg Aspirin (Aspirin Chewable) 81 mg PO DAILY [facility] Last Admin: 02/09/17 09:34 Dose: 81 mg Brimonidine Tartrate (Alphagan 0.2% Opht) 0 ml OU BID [facility] Last Admin: 02/09/17 09:37 Dose: 1 drop Divalproex Sodium (Depakote Er) 250 mg PO DAILY [facility] Last Admin: 02/09/17 10:02 Dose: 250 mg Gabapentin (Neurontin) 300 mg PO BID [facility] Last Admin: 02/09/17 09:34 Dose: 300 mg Ceftriaxone Sodium (Rocephin Iv 1 Gm Duplex) 50 mls @ 100 mls/hr IVPB DAILY [facility] Last Admin: 02/09/17 10:08 Dose: 100 mls/hr Latanoprost (Xalatan Opht) 0 ml OU HS [facility] Last Admin: 02/08/17 21:53 Dose: 2.5 ml Levetiracetam (Keppra) 500 mg PO BID [facility] Last Admin: 02/09/17 09:34 Dose: 500 mg Metoprolol Succinate (Toprol Xl) 25 mg PO DAILY [facility] Last Admin: 02/09/17 09:34 Dose: 25 mg Mirtazapine (Remeron) 7.5 mg PO HS [facility] Last Admin: 02/08/17 21:53 Dose: 7.5 mg Rosuvastatin Calcium (Crestor) 5 mg PO HS [facility] Last Admin: 02/08/17 21:52 Dose: 5 mg Tamsulosin HCl (Flomax) 0.4 mg PO DAILY [facility] Last Admin: 02/09/17 09:34 Dose: 0.4 mg - Labs Labs: 02/04/17 16:38 02/04/17 16:38 PT 15.5 SECONDS (9.7-12.2) H 01/30/17 02:06 INR 1.4 01/30/17 02:06 APTT 38 SECONDS (21-34) H 01/30/17 02:06 - Constitutional Appears: Well - Head Exam Head Exam: ATRAUMATIC, NORMAL INSPECTION, NORMOCEPHALIC - Eye Exam Eye Exam: EOMI, Normal appearance, PERRL Pupil Exam: NORMAL ACCOMODATION, PERRL - ENT Exam ENT Exam: Mucous Membranes Moist, Normal Exam - Neck Exam Neck Exam: Full ROM, Normal Inspection. absent: Lymphadenopathy - Respiratory Exam Respiratory Exam: Decreased Breath Sounds - Cardiovascular Exam Cardiovascular Exam: REGULAR RHYTHM, +S1, +S2 - GI/Abdominal Exam GI & Abdominal Exam: Soft, Diminished Bowel Sounds - Rectal Exam Rectal Exam: Deferred Assessment and Plan (1) Pneumonia Status: Acute (2) UTI (urinary tract infection) Status: Acute (3) Upper respiratory infection Status: Acute (4) Aggressive behavior Status: Acute (5) Alzheimer's dementia Status: Acute (6) Fall Status: Acute (7) Head injury Status: Acute (8) Polyuria Status: Acute (9) Seizure Status: Acute - Assessment and Plan (Free Text) Plan: Continue same discharge tomorrow morning as discussed with Dr. Azeem Calvillo who plans to do surgery on 828 will bring the patient back on [phone] in the morning for possible surgery for a 20 7 at night for possible surgery on 828 continue same continue Rocephin will discharge the patient's tomorrow morning
[2017-02-09] MEDS: Latanoprost 2.5 ml Opht Soln OU SCH (22:15)
[2017-02-10] MEDS: Metoprolol Succinate 25 mg XL Tab PO SCH (09:45)
[2017-02-10] MEDS: cefTRIAXone IV 1 gm in Dextros 50 ML IVPB SCH (09:46)
[2017-02-10] MEDS: Brimonidine 0.2% Opth Sol (5ml) OU SCH ×2 (09:46→17:56)
[2017-02-10 15:24] VITALS: BP 144/74; PULSE 67; RESP 20; TEMP 97.9; O2SAT 100
--- NOTE | 2017-02-10 16:22 | CP.PCM.PN ---
Subjective - Date & Time of Evaluation Date of Evaluation: 02/10/17 Time of Evaluation: 16:22 - Subjective Subjective: 76 Y/O MALE SEEN AND EXAMINED TODAY, RESP EASY AND UNLABORED. NAD Objective - Vital Signs/Intake and Output Vital Signs (last 24 hours): Temp Pulse Resp BP Pulse Ox 97.9 F 67 20 144/74 100 02/10/17 15:00 02/10/17 15:00 02/10/17 15:00 02/10/17 15:00 02/10/17 15:00 Intake and Output: 02/10/17 02/10/17 06:59 18:59 Intake Total 100 Balance 100 - Medications Medications: Current Medications Acetaminophen (Tylenol 325mg Tab) 325 mg PO Q4H PRN PRN Reason: Pain, Mild (1-3) Last Admin: 02/02/17 00:48 Dose: 325 mg Aspirin (Aspirin Chewable) 81 mg PO DAILY [facility] Last Admin: 02/10/17 09:44 Dose: 81 mg Brimonidine Tartrate (Alphagan 0.2% Opht) 0 ml OU BID [facility] Last Admin: 02/10/17 09:46 Dose: 1 drop Divalproex Sodium (Depakote Er) 250 mg PO DAILY [facility] Last Admin: 02/10/17 09:44 Dose: 250 mg Gabapentin (Neurontin) 300 mg PO BID [facility] Last Admin: 02/10/17 09:45 Dose: 300 mg Ceftriaxone Sodium (Rocephin Iv 1 Gm Duplex) 50 mls @ 100 mls/hr IVPB DAILY [facility] Last Admin: 02/10/17 09:46 Dose: 100 mls/hr Latanoprost (Xalatan Opht) 0 ml OU HS [facility] Last Admin: 02/09/17 22:15 Dose: 2.5 ml Levetiracetam (Keppra) 500 mg PO BID [facility] Last Admin: 02/10/17 09:45 Dose: 500 mg Metoprolol Succinate (Toprol Xl) 25 mg PO DAILY [facility] Last Admin: 02/10/17 09:45 Dose: 25 mg Mirtazapine (Remeron) 7.5 mg PO HS [facility] Last Admin: 02/09/17 22:30 Dose: 7.5 mg Rosuvastatin Calcium (Crestor) 5 mg PO HS [facility] Last Admin: 02/09/17 22:15 Dose: 5 mg Tamsulosin HCl (Flomax) 0.4 mg PO DAILY [facility] Last Admin: 02/10/17 09:45 Dose: 0.4 mg - Labs Labs: 02/04/17 16:38 02/04/17 16:38 PT 15.5 SECONDS (9.7-12.2) H 01/30/17 02:06 INR 1.4 01/30/17 02:06 APTT 38 SECONDS (21-34) H 01/30/17 02:06 Assessment and Plan - Assessment and Plan (Free Text) Plan: 76 Y/O MALE WITH PMHX PROSTATE CANCER * ADMITTED FOR URINARY INCONTINENCE, FREQUENCY * RENAL US- 1.2X1.0X1.4 CM RIGHT UPPER POLE LESION AND CYST * BONE SCAN- OSSEOUS METASTATIC DISEASE THORACOLUMBAR SPINE AND PELVIS * CASE AND RESULT D/W DR ESCOBAR * ORCHIECTOMY ON 02/23, NPO AFTER MIDNIGHT 02/22
--- NOTE | 2017-02-10 16:44 | CP.PCM.PN ---
Subjective - Date & Time of Evaluation Date of Evaluation: 02/10/17 Time of Evaluation: 07:20 - Subjective Subjective: clinically same Objective - Vital Signs/Intake and Output Vital Signs (last 24 hours): Temp Pulse Resp BP Pulse Ox 97.9 F 67 20 144/74 100 02/10/17 15:00 02/10/17 15:00 02/10/17 15:00 02/10/17 15:00 02/10/17 15:00 Intake and Output: 02/10/17 02/10/17 06:59 18:59 Intake Total 100 Balance 100 - Medications Medications: Current Medications Acetaminophen (Tylenol 325mg Tab) 325 mg PO Q4H PRN PRN Reason: Pain, Mild (1-3) Last Admin: 02/02/17 00:48 Dose: 325 mg Aspirin (Aspirin Chewable) 81 mg PO DAILY [facility] Last Admin: 02/10/17 09:44 Dose: 81 mg Brimonidine Tartrate (Alphagan 0.2% Opht) 0 ml OU BID [facility] Last Admin: 02/10/17 09:46 Dose: 1 drop Divalproex Sodium (Depakote Er) 250 mg PO DAILY [facility] Last Admin: 02/10/17 09:44 Dose: 250 mg Gabapentin (Neurontin) 300 mg PO BID [facility] Last Admin: 02/10/17 09:45 Dose: 300 mg Ceftriaxone Sodium (Rocephin Iv 1 Gm Duplex) 50 mls @ 100 mls/hr IVPB DAILY [facility] Last Admin: 02/10/17 09:46 Dose: 100 mls/hr Latanoprost (Xalatan Opht) 0 ml OU HS [facility] Last Admin: 02/09/17 22:15 Dose: 2.5 ml Levetiracetam (Keppra) 500 mg PO BID [facility] Last Admin: 02/10/17 09:45 Dose: 500 mg Metoprolol Succinate (Toprol Xl) 25 mg PO DAILY [facility] Last Admin: 02/10/17 09:45 Dose: 25 mg Mirtazapine (Remeron) 7.5 mg PO HS [facility] Last Admin: 02/09/17 22:30 Dose: 7.5 mg Rosuvastatin Calcium (Crestor) 5 mg PO HS [facility] Last Admin: 02/09/17 22:15 Dose: 5 mg Tamsulosin HCl (Flomax) 0.4 mg PO DAILY [facility] Last Admin: 02/10/17 09:45 Dose: 0.4 mg - Labs Labs: 02/04/17 16:38 02/04/17 16:38 PT 15.5 SECONDS (9.7-12.2) H 01/30/17 02:06 INR 1.4 01/30/17 02:06 APTT 38 SECONDS (21-34) H 01/30/17 02:06 - Constitutional Appears: Well - Head Exam Head Exam: ATRAUMATIC, NORMAL INSPECTION, NORMOCEPHALIC - Eye Exam Eye Exam: EOMI, Normal appearance, PERRL Pupil Exam: NORMAL ACCOMODATION, PERRL - ENT Exam ENT Exam: Mucous Membranes Moist, Normal Exam - Neck Exam Neck Exam: Full ROM, Normal Inspection. absent: Lymphadenopathy - Respiratory Exam Respiratory Exam: Decreased Breath Sounds - Cardiovascular Exam Cardiovascular Exam: REGULAR RHYTHM, +S1, +S2 - GI/Abdominal Exam GI & Abdominal Exam: Soft, Diminished Bowel Sounds - Rectal Exam Rectal Exam: Deferred Assessment and Plan (1) Pneumonia Status: Acute (2) UTI (urinary tract infection) Status: Acute (3) Upper respiratory infection Status: Acute (4) Aggressive behavior Status: Acute (5) Alzheimer's dementia Status: Acute (6) Fall Status: Acute (7) Head injury Status: Acute (8) Polyuria Status: Acute (9) Seizure Status: Acute
== END 2017-02-10 19:45 | disposition home or self-care (01) | DRG 194 ==
LOC: C.ER 01:40 → SUPCPDRO 01:40 → C.5T 03:32 → C.3T 01-31 20:21
PROVIDERS: ADMIT Internal Medicine Nephrology; ATTEND Internal Medicine Nephrology
DX: J18.9 Pneumonia, unspecified organism (principal); N39.0 Urinary tract infection, site not specified; F02.81 Dementia in other diseases classified elsewhere, unspecified severity, with behavioral disturbance; G30.9 Alzheimer's disease, unspecified; J06.9 Acute upper respiratory infection, unspecified; C61 Malignant neoplasm of prostate; I10 Essential (primary) hypertension; N40.0 Benign prostatic hyperplasia without lower urinary tract symptoms; R32 Unspecified urinary incontinence; S09.90XA Unspecified injury of head, initial encounter; W19.XXXA Unspecified fall, initial encounter; Z87.891 Personal history of nicotine dependence; Z89.511 Acquired absence of right leg below knee; Z91.81 History of falling